=== PATIENT | female | born 1955 | race Hispanic/Latino ===

== ENCOUNTER 2016-12-25 09:02 | Outpatient (CLI) | payer BC ==
--- NOTE | 2016-12-25 14:25 | Mammography Report ---
BONE DEXA:12/25/16 09:02:00 CLINICAL: Postmenopausal and history of breast cancer. COMPARISON: 02/09/14 TECHNIQUE: Two site bone DEXA performed on an Hologic scanner. FINDINGS: The average BMD of the lumbar spine L1-L4 is 0.933g/cm squared with a T-score of -1.0 and a Z-score of +0.6. This compares to 0.918g/cm squared on the last exam and represents a +1.7% change from the previous baseline. The average BMD of the left hip is 0.987g/cm squared with a T-score of +0.4 and a Z-score of +1.5. This compares to 0.967g/cm squared on the last exam and represents a +2.1% change from the previous baseline. IMPRESSION: 1. WHO classification: Normal with average fracture risk based on spine measurements. 2. A modest improvement in both spine and left hip BMD compared to the previous exam. RECOMMENDATION: Clinical correlation and routine screening. DEFINITIONS: BMD = Bone Mineral Density T-score = BMD related to mean peak bone mass of young adult (mean expressed in Standard Deviation) Z-score = Age matched BMD expressed in SD World Health Organization (WHO) Diagnostic Criteria Normal T-score > -1 SD Osteopenia T-score between -1 and -2.4 SD Osteoporosis T-score -2.5 SD or below NOTE: BMD is not the only risk factor for fracture; also consider factors such as the patient's age, risk of falling, previous osteoporotic fracture, family history of osteoporotic fractures, current smoker, and low body weight. Z-scores are not calculated if >80 years of age.
== END 2016-12-25 09:03 | disposition home or self-care (01) ==
LOC: SPVWC 09:02
PROVIDERS: ATTEND Internal Medicine
DX: M85.80 Other specified disorders of bone density and structure, unspecified site (principal); Z78.0 Asymptomatic menopausal state; Z85.3 Personal history of malignant neoplasm of breast
CPT/HCPCS: 77080

== ENCOUNTER 2017-03-10 08:18 | Outpatient (CLI) | payer BC ==
--- NOTE | 2017-03-10 09:06 | XRay Report ---
Paranasal sinuses 4 views. History: Chronic maxillary sinusitis. Findings: The paranasal sinuses are clear. No air-fluid levels are seen. No significant bony findings are seen. Impression: Normal study.
== END 2017-03-10 08:19 | disposition home or self-care (01) ==
LOC: SPVIMAG 08:18
DX: J32.0 Chronic maxillary sinusitis (principal)
CPT/HCPCS: 70220